=== PATIENT | female | born 1970 | race Caucasian/White ===

== ENCOUNTER → 2017-12-12 10:19 | Outpatient (REF) | payer MEDICARE, SELFPAY ==
[2017-12-12 14:40] LABS: Alanine Aminotransferase 33 U/L (12-78); Albumin Level 4.9 gm/dL (3.4-5.0); Albumin/Globulin Ratio 1.7 (1.1-1.8); Alkaline Phosphatase 82 U/L (46-116); Anion Gap 17.9 mEq/L (5-15); Aspartate Amino Transferase 12 U/L (15-37); Bilirubin,Total 0.7 mg/dL (0.2-1.0); Blood Urea Nitrogen 8 mg/dL (7-18); Calcium 9.9 mg/dL (8.5-10.1); Carbon Dioxide 26 mmol/L (21.0-32.0); Chloride 104 mmol/L (98-107); Chol/HDL Ratio 2.5 (1-3.5); Cholesterol 242 mg/dL (140-200); Creatinine,Serum 0.62 mg/dL (0.55-1.02); Estimated Glomerular Filt Rate 104 ml/min (>60); Free T4 (Free Thyroxine) 1.02 ng/dl (0.76-1.46); GFR (African American) 126 ML/MIN (>60); Globulin 2.9 gm/dl (1.3-3.2); Glucose 107 mg/dL (74-106); HDL Cholesterol 95 mg/dL (29-89); LDL Cholesterol 134 mg/dL (0-130); Potassium 3.9 mmoL/L (3.5-5.1); Sodium 144 mmol/L (136-145); Thyroid Stimulating Hormone 0.94 uIU/ml (0.358-3.740); Total Protein,Serum 7.8 gm/dL (6.4-8.2); Triglycerides 65 mg/dL (30-200); VLDL Cholesterol 13 mg/dL (0-40)
[2017-12-12 14:49] LABS: Basophils # 0.1 K/mm3 (0-0.2); Basophils % 0.5 % (0.1-2.0); Eosinophils % 0.3 % (0.1-12.0); Hematocrit 42.8 % (37.0-47.0); Hemoglobin 13.6 g/dL (12.2-16.2); Lymphocytes # 1.4 K/mm3 (0.7-4.5); Lymphocytes % 16.4 K/mm3 (10-50); Mean Corpuscular HGB Conc 31.8 g/dL (31.8-35.4); Mean Corpuscular Volume 94.3 fl (81-99); Monocytes # 0.3 K/mm3 (0.1-1.0); Monocytes % 3.3 % (1.7-9.3); Neutrophils # 6.7 K/mm3 (1.8-7.8); Neutrophils % 79.5 % (37.0-80.0); Platelet Count 254 K/mm3 (142-424); Red Blood Count 4.54 M/mm3 (4.20-5.40); Red Cell Distribution Width 13.3 % (11.5-17.5); White Blood Count 8.4 K/mm3 (4.8-10.8)
== END ==
LOC: LAB 10:19
PROVIDERS: Visit Provider Emergency Medicine
DX: R53.83 Other fatigue (principal); E78.5 Hyperlipidemia, unspecified; M25.559 Pain in unspecified hip
CPT/HCPCS: 80053; 80061; 82652; 84439; 84443; 85025